=== PATIENT | female | born 1970 | race Asian ===

== ENCOUNTER 2016-04-09 22:51 | Emergency (ER) | payer OTHER ==
[~2016-04-09] VITALS: Ht 172.7 cm; Wt 75.8 kg
[2016-04-09 23:27] LABS: PLATELET COUNT 141 K/uL (152-353)
[2016-04-10 00:20] VITALS: BP 186/90; TEMP 98.4
== END 2016-04-10 00:20 | disposition home or self-care (01) ==
LOC: ED 22:51
DX: L03.116 Cellulitis of left lower limb (principal); Z18.9 Retained foreign body fragments, unspecified material; W20.8XXA Other cause of strike by thrown, projected or falling object, initial encounter; Y92.098 Other place in other non-institutional residence as the place of occurrence of the external cause
CPT/HCPCS: 36415; 85027; 96372; 99283; J0696; J1885

== ENCOUNTER 2018-04-19 15:48 | Outpatient (CLI) | payer OTHER ==
[2018-04-19 15:58] LABS: PLATELET COUNT 133 K/uL (152-353)
[2018-04-19 16:18] LABS: POTASSIUM 4.2 mmol/L (3.6-5.2)
== END 2018-04-19 20:22 | disposition home or self-care (01) ==
LOC: LAB 15:48
PROVIDERS: Physician Assistant
DX: R00.0 Tachycardia, unspecified (principal); J45.30 Mild persistent asthma, uncomplicated; I10 Essential (primary) hypertension
CPT/HCPCS: 80053; 82306; 83036; 84439; 84443; 85027

== ENCOUNTER 2018-11-05 18:31 | Emergency (ER) | payer OTHER ==
[~2018-11-05] VITALS: Ht 172.7 cm; Wt 74.4 kg
[2018-11-05] MEDS ORDERED: DILTIAZEM HCL180 M2 PO (18:55)
[2018-11-05] MEDS ORDERED: DULERA1 AE1 INH (18:56)
[2018-11-05 19:36] LABS: PLATELET COUNT 163 K/uL (152-353)
[2018-11-05 20:25] LABS: POTASSIUM 3.7 mmol/L (3.6-5.2)
[2018-11-05 21:15] VITALS: BP 171/96; TEMP 98.1
== END 2018-11-05 21:15 | disposition home or self-care (01) ==
LOC: ED 18:31
PROVIDERS: Student in an Organized Health Care Education/Training Program
DX: J02.0 Streptococcal pharyngitis (principal); N39.0 Urinary tract infection, site not specified; F17.210 Nicotine dependence, cigarettes, uncomplicated; R00.0 Tachycardia, unspecified
CPT/HCPCS: 80053; 81000; 83690; 83735; 84484; 85027; 87077; 87086; 87088; 87186; 87502; 87651; 93005; 94664; 96360; 96375; 99284; J1885; J2930